=== PATIENT | male | born 1995 | race Caucasian/White ===

== ENCOUNTER 2017-01-17 06:13 | Day surgery (SDC) | payer OTHER ==
[2017-01-14 10:53] VITALS: BMI 36.9
[2017-01-17] VITALS (14 sets, daily range): BP systolic 97–131; BP diastolic 43–67; PULSE 71–108; RESP 15–75; Ht 177.8 cm; Wt 125.4 kg
[~2017-01-17] VITALS: Ht 177.8 cm; Wt 125.4 kg
[~2017-01-17 06:13] MED LIST: CEFAZOLIN 2 GM/50 ML (PMX) 50 ML IVPB ONE; SOD CHLORIDE 0.9% 1,000 ML IV ONE
[2017-01-17] MEDS ORDERED: CEFAZOLIN 1 GM INJ ONE (07:28)
[2017-01-17] MEDS ORDERED: PROPOFOL 100 ML ONE (07:28)
[2017-01-17] MEDS ORDERED: MIDAZOLAM 1 MG/ML 2 ML INJ ONE (07:28)
[2017-01-17] MEDS ORDERED: FENTAnyl 50 MCG/ML VIAL ONE ×2 (07:28→08:35)
[2017-01-17] MEDS ORDERED: BUPIVACAINE 0.25% (MPF) 30 ML INJ ONE (07:38)
[2017-01-17 07:53] LABS: BASOPHILS % 0.5 % (0.0-2.0); EOSINOPHILS # 0.2 10^3/ul (0.0-0.5); EOSINOPHILS % 2.3 % (0.0-7.0); HEMATOCRIT 43.1 % (42.0-52.0); HEMOGLOBIN 14.3 g/dl (14.0-18.0); LYMPHOCYTES # 2.2 10^3/ul (0.8-2.9); MEAN CORPUSCULAR HEMOGLOBIN 29.5 pg (29.0-33.0); MEAN CORPUSCULAR HGB CONC 33.2 g/dl (32.0-37.0); MEAN CORPUSCULAR VOLUME 88.9 fl (72.0-104.0); MEAN PLATELET VOLUME 11.2 fl (7.4-10.4); MONOCYTE # 0.7 10^3/ul (0.3-0.9); MONOCYTES % 8.1 % (0.0-13.0); NEUTROPHILS % 61.9 % (30.0-74.0); PLATELET COUNT 281 10^3/UL (140-415); RED BLOOD COUNT 4.85 10^6/ul (4.70-6.10); RED CELL DISTRIBUTION WIDTH 12.6 % (11.5-14.5); WHITE BLOOD COUNT 8.3 10^3/ul (4.8-10.8)
[2017-01-17 07:59] LABS: ALBUMIN/GLOBULIN RATIO 1.17; TOTAL PROTEIN 7.4 g/dl (6.1-8.1)
[2017-01-17] MEDS ORDERED: KETOROLAC 30 MG INJ ONE (07:59)
[2017-01-17 08:00] LABS: CALCIUM 8.9 mg/dl (8.4-10.2); CREATININE 0.81 mg/dl (0.61-1.24); POTASSIUM 4.1 mmol/L (3.5-5.1)
[2017-01-17 08:13] LABS: INR 0.93; PROTIME 12.5 Sec (12.2-14.2)
[2017-01-17 08:14] LABS: PARTIAL THROMBOPLASTIN TIME 30.3 Sec (25.0-35.0)
[2017-01-17] MEDS ORDERED: MEPERIDINE 25 MG INJ IV PRN (09:00)
[2017-01-17] MEDS ORDERED: OXYCODONE/ACETAMINOPHEN (5/325) TAB PO PRN ×2 (09:00)
[2017-01-17] MEDS ORDERED: HYDROmorphONE (0.2 MG/ML) 10ML SYG IV PRN ×3 (09:00)
[2017-01-17] MEDS ORDERED: METOCLOPRAMIDE 10 MG INJ IV PRN (09:00)
[2017-01-17] MEDS ORDERED: DIPHENHYDRAMINE 50 MG INJ IV PRN (09:00)
[2017-01-17] MEDS ORDERED: ONDANSETRON 4 MG INJ IV PRN ×2 (09:00→10:00)
--- NOTE | 2017-01-17 09:33 | OPR ---
Date/Time of Note Date/Time of Note DATE: 01/17/17 TIME: 09:27 Operative Report Procedure Date: Jan 17, 2017 Preoperative Diagnosis Large soft tissue mass of left inner thigh Postoperative Diagnosis Large soft tissue mass of left inner thigh Operation Performed Excision of large soft tissue mass of left inner thigh complex, 9.5 cm x 5.5 cm. Surgeon: YVONNE HALL MD Anesthesia Type: general Anesthesiologist: LEROY POOLE MD Estimated Blood Loss: 10 - 50 ml's Transfusion Required: no Specimens Soft tissue mass of left inner thigh Grafts/Implants: none Tubes/Drains 15 [place] round Bruno drain Complications: no Pt Condition Post Procedure: stable Disposition: PACU Indications Patient is an obese 21-year-old male who presented to the office with a large soft tissue mass of the left inner thigh. 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 It had been growing and causing increasing pain and discomfort. The patient was scheduled for excision. All risks and benefits of the procedure including, but not limited to: Wound infection, excessive bleeding, postoperative seroma/hematoma formation, injury to neurovascular structures, mass recurrence, etc. were all explained to the patient in full detail. He fully understood and wished to proceed with the procedure. Informed consent was obtained. Operative\Procedure Findings Large, firm encapsulated mass measuring 9.5 x 5.5 cm Procedure Description Patient was brought to the operating room and placed supine on the operating table. Bilateral sequential compression devices were placed on both lower extremities. A dose of broad-spectrum perioperative intravenous antibiotics was given. After the induction of smooth general anesthesia the patient was positioned in the frog-leg position with his lower extremities abducted. Excess fat was taped apart in order to expose the mass which is been preoperatively marked and confirmed with the patient in the holding area. Left inner thigh was then prepped and draped in standard surgical fashion. After performance of the surgical timeout a transverse incision was made using a 10 blade scalpel over the area of the mass which extended from the medial inner thigh to the posterior aspect of the inner thigh. Dissection was continued through the subcutaneous tissues. A large firm encapsulated mass was identified. It was lobulated. There was a lot of scarring to the surrounding tissues. Extensive tedious dissection was done circumferentially to dissect around the mass. It extended posteriorly into the deep thigh compartment. Once dissection was completed circumferentially it was then transected at its base and passed off the field as specimen. Marking sutures were used to keira the superior and medial aspects. It measured approximately 9.5 cm x 5.5 cm. Hemostasis was inspected for and noted to be adequate. The wound cavity was irrigated with copious amounts of sterile water. The irrigant returned clear. Due to the large resultant cavity it was elected to leave a 15 [place] round Bruno drain in the cavity. It was brought out through a separate stab wound in the left inner thigh and connected to bulb suction. The wound was then closed in layers using interrupted 2-0 Vicryl sutures for the deep layer. Skin was reapproximated using skin yoanna. 0.25% Marcaine was injected in a radial fashion around the area of the incision. Incision was cleaned and sterile pressure dressings were applied. Patient was awoken from anesthesia and transferred to recovery room in stable condition. All counts were correct at the end of the case 2 YVONNE HALL MD Jan 17, 2017 09:33
[2017-01-17] MEDS ORDERED: morphine 2 MG INJ IV PRN (10:00)
[2017-01-17] MEDS ORDERED: HYDROCODONE/APAP (5/325) TAB PO PRN ×2 (10:00)
== END 2017-01-17 11:35 | disposition home or self-care (01) ==
LOC: SDS 06:13 → SUR 06:13
PROVIDERS: ATTEND Surgery
DX: M72.8 Other fibroblastic disorders (principal); D49.2 Neoplasm of unspecified behavior of bone, soft tissue, and skin; E66.01 Morbid (severe) obesity due to excess calories; Z68.39 Body mass index [BMI] 39.0-39.9, adult
CPT/HCPCS: 11406; 12032; 80053; 85025; 85610; 85730; 88307; J0690; J1885; J2175; J2250; J2405; J3010; J7030; Z7512; Z7610